=== PATIENT | female | born 2000 | race Caucasian/White ===

== ENCOUNTER → 2025-01-07 | Outpatient (CLI) | payer OTHER, SELFPAY ==
[2025-01-07 16:12] LABS: AST(SGOT) 23 U/L (<=31); Alanine Aminotransfer ALT/SGPT 12 U/L (<=34); Albumin, Serum 4.3 g/dL (3.5-5.0); Alkaline Phosphatase 76 U/L (35-104); Anion Gap 10 (5-15); BUN 12 mg/dL (4-19); BUN/Creat Ratio 13.3 RATIO (10-20); Calcium,Total 10.9 mg/dL (7.6-11.0); Carbon Dioxide 24.6 mmol/L (21.0-32.0); Chloride 105 mmol/L (98-108); Cholesterol 153 mg/dL (<=190); Follicle Stimulating Hormone 6.9 mIU/mL; Globulin 2.5 g/dL (2.2-4.2); Glucose 85 mg/dL (70-99); Hematocrit 40.4 % (37-47); Hemoglobin 13.6 g/dL (12.0-15.0); Immature Granulocytes Count 0.030 X10^3/uL (0.0-0.0); Low Density Lipoprotein Calc. 67 mg/dL; Mean Corp Hgb Conc 33.7 g/dL (32-36); Mean Corpuscular Volume 95.3 fL (81-99); Mean Platelet Vol. 10.8 fl (6.2-12.0); NRBC Flagged by Analyzer 0 % (0-5); Platelet Count 278 K/mm3 (150-450); Potassium 4.3 mmol/L (3.3-5.1); RBC Distribution Width CV 12.4 % (11.6-14.6); RBC Distribution Width SD 43.2 fl (35.1-43.9); Red Blood Count 4.24 M/mm3 (4.2-5.4); T3 Total - Triiodothyronine 0.89 ng/mL (0.80-2.00); Triglycerides 45 mg/dL; Very Low Density Lipoprotein 9 mg/dL (5-40); White Blood Count 8.6 K/mm3 (4.4-11.0); cholesterol:hdl ratio screen 1.99
== END | disposition home or self-care (01) ==
PROVIDERS: PCP Family Medicine; Referring Provider Family Medicine; Visit Provider Family Medicine
DX: Z01.89 Encounter for other specified special examinations (principal); N92.0 Excessive and frequent menstruation with regular cycle
CPT/HCPCS: 36415; 80053; 80061; 82670; 83001; 83002; 84439; 84443; 84480; 85025